=== PATIENT | female | born 1965 | race African-American/Black ===

== ENCOUNTER 2020-09-01 13:14 | Emergency (ER) | payer OTHER | END 2020-09-01 17:18 | disposition home or self-care (01) | LOC: FER 13:14 | DX: U07.1 COVID-19 (principal); I10 Essential (primary) hypertension; I25.10 Atherosclerotic heart disease of native coronary artery without angina pectoris; G35 Multiple sclerosis | CPT/HCPCS: J7050; M0239 ==

== ENCOUNTER → 2021-06-22 | Day surgery (SDC) | payer OTHER ==
[~2021-06-22] VITALS: Ht 165.1 cm; Wt 97.5 kg
[~2021-06-22] MED LIST: ALEVE PM CAPLE1 EACH PO; ANTIVERT25 MG PO; DRISDOL50000 UNIT PO; GABAPENTIN800 MG PO; HYZAAR 100-251 EACH PO; LEXAPRO20 MG PO; LIPITOR40 MG PO; OCREVUS300 MG/10 IV
== END | disposition home or self-care (01) ==
LOC: FAS 08:57
DX: Z12.11 Encounter for screening for malignant neoplasm of colon (principal); E78.5 Hyperlipidemia, unspecified; I10 Essential (primary) hypertension; I25.10 Atherosclerotic heart disease of native coronary artery without angina pectoris; G35 Multiple sclerosis; I25.2 Old myocardial infarction; E66.9 Obesity, unspecified; Z79.82 Long term (current) use of aspirin; Z88.8 Allergy status to other drugs, medicaments and biological substances; Z91.041 Radiographic dye allergy status; Z90.710 Acquired absence of both cervix and uterus; Z72.89 Other problems related to lifestyle
CPT/HCPCS: J2704; J7120